=== PATIENT | male | born 1970 | race Caucasian/White ===

== ENCOUNTER 2016-11-08 13:30 | Emergency (ER) ==
[2016-11-08 13:34] VITALS: BP 148/90
[2016-11-08] MEDS ORDERED: FLEXERIL PO ONE (14:37)
[2016-11-08] MEDS ORDERED: NORCO-5 PO ONE (14:37)
--- NOTE | 2016-11-08 14:39 | PROVIDER DOCUMENTATION ---
HPI-Musculoskeletal Pain/Inj <Nani AlbrightLynnette - Last Filed: 11/08/16 14:38> - GENERAL Source: patient - HX OF PRESENT ILLNESS-MUSKULOSKELTAL Quality of Pain: reports: aching Severity in ED: mild Onset/Duration: gradual, 3 days ago Timing: still present, constant Modifying Factors: worse with: movement Locality of Occurance: Home Similar Symptoms Previously?: No Recently seen or treated by another doctor?: No - BACK & NECK PAIN/INJURY Back/Neck Pain Location: reports: C-spine Back/Neck Pain Radiation: reports: shoulders (left) Context / Method of Injury: reports: unknown Associated Symptoms: reports: denies symptoms History of Chronic Neck or Back Pain?: No <Arden Hawkins - Last Filed: 11/08/16 15:31> - GENERAL Chief Complaint: Neck Pain Stated Complaint: NECK AND SHOULDER PAIN Time Seen by Provider: 11/08/16 14:16 - HX OF PRESENT ILLNESS-MUSKULOSKELTAL Nature of Presenting Problem: patient is a 46 yo M that presents to the ER with neck and left shoulder pain that began 3 days ago. denies injury, no fever/chills, throat pain, or earache, history of same in past. (Arden Hawkins) Review of Systems - Adult - REVIEW OF SYSTEMS - ADULT Constitutional: denies: chills, fever Eyes: reports: no symptoms reported Ears, Nose, Mouth & Throat: denies: ear pain, sinus problem, throat pain, throat swelling Cardiovascular: denies: chest pain, palpitations Respiratory: denies: cough, shortness of breath, wheezing Gastrointestinal: denies: abdominal pain, diarrhea, nausea, vomiting Genitourinary: reports: no symptoms reported Musculoskeletal: reports: joint pain, neck pain. denies: back pain Integumentary: reports: no symptoms reported Neurological: reports: no symptoms reported Psychiatric: reports: no symptoms reported Endocrine: reports: no symptoms reported Hematologic/Lymphatic: reports: no symptoms reported Allergic/Immunologic: reports: no symptoms reported All Other Systems: Reviewed and Negative <Arden Hawkins - Last Filed: 11/08/16 15:31> Past History - Adult - PAST MEDICAL HISTORY-ADULT Review of Records: reports: Old Records Reviewed, Nursing Assessment Review, Medications Reviewed - PRIOR SURGERIES/PROCEDURES Surgical/Procedure History: reports: hernia repair - IMMUNIZATION STATUS Childhood Immunizations: See Nurse Assessment Flu Vaccine: See Nurse Assessment - FAMILY HISTORY Family History: reviewed, not pertinent - SOCIAL HISTORY Smoking: cigarettes, greater than 1 pack/day Alcohol Use Frequency: occasionally Living Situation: family <Arden Hawkins - Last Filed: 11/08/16 15:31> Physical Exam-Injury Related - Physical Exam-Injury Related Initial Vital Signs Reviewed: Yes General Appearance: alert, no apparent distress Eyes: PERRL/EOMI, pink conjunctivae Neck: other (left trapezius muscle spasm). negative: Brudzinski's sign, C- spine tenderness Respiratory: lungs clear, normal breath sounds, no respiratory distress, no accessory muscle use Cardiovascular: regular rate, rhythm, no edema, no murmur Abdominal Exam: normal bowel sounds, non tender, soft Back Exam: no CVA tenderness. negative: CVA tenderness Extremity: normal range of motion, normal inspection, no calf tenderness, normal capillary refill Integumentary: normal color, warm/dry Neurologic: grossly normal, no motor/sensory deficits Psych/Mental Status: normal mood/affect, normal thought content, normal thought process, oriented x 3 <Arden Hawkins - Last Filed: 11/08/16 15:31> Progress <Nani Albright - Last Filed: 11/08/16 14:38> <Arden Hawkins - Last Filed: 11/08/16 15:31> - PLAN OF CARE/RESULTS Progress/Plan/Lab Results: Vital Signs Temp Pulse Resp BP Pulse Ox 11/08/16 13:32 97.6 F 77 16 148/90 100 No Known Allergies Allergy (Verified 11/08/16 15:03) Cyclobenzaprine [Flexeril] 10 mg PO TID #20 tablet 11/08/16 Diclofenac Sodium 50 mg PO Q8-12H PRN PRN #30 tablet. 11/08/16 Famotidine [Pepcid] 20 mg PO DAILY #20 tablet 11/08/16 Orders Category Date Time Status Cyclobenzaprine [Flexeril] Med 11/08/16 14:37 Discontinued 10 mg PO NOW ONE Hydrocodone/APAP 5 mg/325 mg [Deaver-5] Med 11/08/16 14:37 Discontinued 1 each PO NOW ONE (Arden Hawkins) Departure - Departure Time of Disposition Order: 14:38 Certified Medical Emergency: Emergent <Nani Albright - Last Filed: 11/08/16 14:38> - Departure Time of Disposition Order: 15:00 Certified Medical Emergency: Emergent <Arden Hawkins - Last Filed: 11/08/16 15:31> - Departure DIAGNOSIS: Trapezius muscle spasm Disposition: HOME 01 Condition: Good Additional Instructions: Follow up with your primary care physician ED Follow Up Instructions: You have been treated by a care provider in the Emergency Department. These instructions are being provided to you so you can have an understanding of how to care for yourself upon discharge. Upon discharge from the Emergency Department, you are responsible for making arrangements for follow-up care by a physician of your choice. Take all prescribed medications as directed. Return to the Emergency Department immediately for any new or worsening symptoms. You may call the Physician Referral phone number at [phone] to obtain a list of Physicians who are taking new patients. Prescriptions: Diclofenac Sodium 50 mg PO Q8-12H PRN PRN #30 tablet.dr GONZALEZ Reason: Pain Cyclobenzaprine [Flexeril] 10 mg PO TID #20 tablet Famotidine [Pepcid] 20 mg PO DAILY #20 tablet Referrals: None,PCP [Primary Care Provider] - Forms: Return to School/Parent Work Instructions: Muscle Cramps and Spasms, [id number]-[id number] Attestation - Scribe Verification/Attestation Scribe:: Arden Hawkins Acting as Scribe for:: Nani Albright Scribe documention review:: This chart was documented by a scribe and accurately reflects the service the provider performed and the decisions made by the provider. - Physician/ Mid-level Attestation Patient care was provided by Mid-level provider (FURNACE FEEDER/PA):: Yes Mid-level provider:: Nani Albright Mid-level documentation review:: The Mid-level provider documentation, treatment plan and medical decision making was reviewed by the physician who agrees with all treatment and medical decision making by the MLP. <Arden Hawkins - Last Filed: 11/08/16 15:31> Physician Attestation
== END 2016-11-08 15:18 | disposition home or self-care (01) ==
LOC: ED 13:30
DX: M62.838 Other muscle spasm (principal); M54.2 Cervicalgia; M25.512 Pain in left shoulder; F17.210 Nicotine dependence, cigarettes, uncomplicated
CPT/HCPCS: 99282